=== PATIENT | female | born 1965 | race Caucasian/White ===

== ENCOUNTER 2024-07-29 13:09 | Outpatient (AMB) | payer BC, SELFPAY ==
--- NOTE | 2024-07-29 13:16 | MHC.PC.OV ---
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 She is transferring from [facility]. She reports a significant past medical history of dyslipidemia. CV: Blood pressure today in the office is 132/86. Denies any history of hypertension. She did trial lipitor in the past but she had adverse effects. Cholesterol has been diet controlled. Mammo: follows at [facility], done in 2023 Pap: follows with [facility] [place] 20[facility] Bone density: last menses was at the age of 51 Colonoscopy: never had this Father had TIA and T2DM in his 50s. 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 1. Little interest or pleasure in doing things: not at all 2. Feeling down, depressed, or hopeless: not at all 3. Trouble falling or staying asleep, or sleeping too much: not at all 4. Feeling tired or having little energy: not at all 5. Poor appetite or overeating: not at all 6. Feeling bad about yourself - or that you are a failure or have let yourself or your family down: not at all 7. Trouble concentrating on things, such as reading the newspaper or watching television: not at all 8. Moving or speaking so slowly that other people could have noticed. Or the opposite - being so fidgety or restless that you have been moving around a lot more than usual: not at all 9. Thoughts that you would be better off or of hurting yourself in some way: not at all Total score: 0 Depression Screening Interpretation: Negative Depression Screening Done: Yes 83503 - PHQ-9 Billing: Yes Source: Developed by Drs. Remi Marquez, Lori Borges, Mirza Christy and colleagues, with an educational harsah from [employer]. Thrive Questionnaire Date Thrive assessed: 07/26/24 I am a: Patient What is your living situation today?: I have a steady place to live Within the past 12 months, did the food you bought not last and you didn't have the money to get more?: Never true Within the past 12 months, did you worry whether your food would run out before you got money to buy more?: Never true Do you have trouble paying for medicines?: No Do you have trouble getting transportation to medical appointments?: No Do you have trouble paying your heating and electricity bill?: No Do you have trouble taking care of your child, family member or friend?: No Do you have trouble with day-to-day activities such as bathing, preparing meals, shopping, managing finances, etc.?: No Are you currently unemployed and looking for a job?: No Are you interested in more education?: No Please select the resources that you would like help with: None Currently or been in a relationship where the following occur: No concerns reported THRIVE Score: 0 AUDIT C Alcohol Use Questionnaire (AUDIT-C) 1. How often do you have a drink containing alcohol?: 2-4 times a month 2. How many drinks containing alcohol do you have on a typical day when you are drinking?: 1 or 2 3. How often do you have six or more drinks on one occasion?: Never Total Score: 2 Score Reviewed/Action Taken: Yes RUSTY-7 AMB Questionnaire RUSTY-7 Date RUSTY - 7 assessed: 07/29/24 Feeling nervous, anxious, or on edge: 0 = Not at all Not being able to stop or control worryin = Not at all Worrying too much about different things: 0 = Not at all Trouble relaxin = Not at all Being so restless that it is hard to sit still: 0 = Not at all Becoming easily annoyed or irritable: 0 = Not at all Feeling afraid as if something awful might happen: 0 = Not at all Total RUSTY-7 score (0-4 normal; 5-9 mild; 10-14 moderate; 15-21 severe): 0 Source: Developed by Drs. Remi Marquez, Lori Borges, Mirza Christy and colleagues, with an educational harsha from [employer]. RUSTY-7 Assessment Billing RUSTY-7 Assessment Tool: RUSTY-7 Assessment 00227 Physical exam (Primary Care) Vital Signs: Last Vital Signs Pulse 71 07/29/24 13:25 Resp 12 07/29/24 13:25 BP 132/86 07/29/24 13:25 Pulse Ox 98 07/29/24 13:25 Oxygen Delivery Method Room Air 07/29/24 13:25 BMI result Body Mass Index 29.9 Tobacco/Smoking Status: Tobacco use Status Tobacco use date assessed 07/29/24 07/29/24 13:18 Patient Tobacco Use Status Never used Tobacco 07/29/24 13:30 e-Cigarette/Vaping Use Never Used 07/29/24 13:30 PHQ-9: PHQ-9 Score PHQ-9: Total score 0 07/29/24 13:37 Depression Screening Interpretation: Negative Thrive Assessment: Date of Thrive Assessment Date Thrive assessed 07/26/24 07/29/24 13:18 Currently or been in a relationship where the following occur: No concerns reported Const Orientation/consciousness: patient oriented x3 HENMT Ears: hearing grossly normal bilaterally Neck Thyroid: Thyroid normal Lymphatic: no lymphadenopathy noted Resp Auscultation: clear to auscultation bilaterally Cardio Rate: regular rate Rhythm: regular rhythm Heart sounds: S1 normal heart sound present and S2 normal heart sound present GI Inspection: Yes normal to inspection Palpation (GI): Soft to palpation and Other GI palpation findings present (nontender, no cva tenderness) Auscultation: normoactive bowel sounds Rectal Exam - Female: deferred Skin General skin exam: no rashes or lesions noted Neuro General: patient oriented x3, gait normal and no focal motor deficits Coding Level of Care Code New Pt Level 3 (71237) Complex EM visit Add On G2211 Diagnoses Dyslipidemia E78.5 Vitamin D insufficiency E55.9 Encounter to establish care with new provider Z76.89 Additional Codes RUSTY-7 Assessment Billing - RUSTY-7 Assessment Tool: RUSTY-7 Assessment 08322 ([id number]) PHQ-9 - 40821 - PHQ-9 Billing: Yes ([id number]) Assessment & Plan Assessment & Plan (1) Dyslipidemia: Code(s): E78.5 - Hyperlipidemia, unspecified Category: Medical Plan: Lipids ordered. We will follow up pending test results (2) Vitamin D insufficiency: Code(s): E55.9 - Vitamin D deficiency, unspecified Category: Medical Plan: Vitamin-D ordered. (3) Encounter to establish care with new provider: Code(s): Z76.89 - Persons encountering health services in other specified circumstances Plan: Mammogram ordered. Bone density ordered. Labs ordered today. Referral to Dermatology and GI. She is overdue for colon cancer screening. Advised to follow up in 6 months for a physical exam. She will follow up sooner if needed. I will let her know her test results once available./ Orders: Orders MM screening mammo BI 07/29/24 Z12.31 - Encounter for screening mammogram for malignant neoplasm of breast Vitamin B12 and Folate 07/29/24 E55.9 - Vitamin D deficiency, unspecified, E78.5 - Hyperlipidemia, unspecified Magnesium 07/29/24 E55.9 - Vitamin D deficiency, unspecified, E78.5 - Hyperlipidemia, unspecified Vitamin D 25-OH Total 07/29/24 E55.9 - Vitamin D deficiency, unspecified, E78.5 - Hyperlipidemia, unspecified Microalbumin, Random (w Creat) 07/29/24 E55.9 - Vitamin D deficiency, unspecified, E78.5 - Hyperlipidemia, unspecified XR DEXA axial skeleton 07/29/24 N95.9 - Unspecified menopausal and perimenopausal disorder Complete Blood Count Auto Diff 07/29/24 E55.9 - Vitamin D deficiency, unspecified, E78.5 - Hyperlipidemia, unspecified Comprehensive [place]. Panel Fast 07/29/24 E55.9 - Vitamin D deficiency, unspecified, E78.5 - Hyperlipidemia, unspecified Lipid Panel 07/29/24 E55.9 - Vitamin D deficiency, unspecified, E78.5 - Hyperlipidemia, unspecified TSH reflex Free T4 07/29/24 E55.9 - Vitamin D deficiency, unspecified, E78.5 - Hyperlipidemia, unspecified Referrals Gastroenterology Referral Z12.11 - Encounter for screening for malignant neoplasm of colon Dermatology Referral L98.9 - Disorder of the skin and subcutaneous tissue, unspecified
[2024-07-29 13:25] VITALS: BP 132/86; PULSE 71; RESP 12; O2SAT 98; BMI 29.9
--- OUTSIDE RECORDS SUMMARY | 2024-07-29 15:40 | XMS_ITS | Data Portability ---
Author Organization [facility], [address] Address [address] [place] [id number] Assessment No assessment recorded. Plan of Treatment Reminders Order Date Submit Date Provider Last Modified By Organization Details Last Modified Time Details Appointments None recorded. Lab rapid strep group A, throat 2022 023 [email or web address] [facility], [address] [place] [address], [id number], 14:17:48 streptococ cus group A, culture, throat 2022 023 [email or web address] [facility] ([facility], [address] [place] [address], [place], [address], 12:07:05 Referral None recorded. Procedures None recorded. Surgeries None recorded. Imaging None recorded. Medication Orders amoxicilli n 875 mg tablet 2022 023 ATHENAFAX [id number], [address] [facility], [place], [address], 14:20:44 Patient TargetsNo targets recorded. Patient Instructions Encounter Date Encounter Id Patient Instructions Last Modified By Organization Details Last Modified Time 11/19/2022 [id number] sore throat: car e instructions Not available 11/19/2022 14:17:47 Use over the counter medications for your sore throat. Basic lozenges (cough drops) or lozenges with an anesthetic (numbing agent) can be used as needed for quick results; look for the active ingredient, benzocaine, for numbing lozenges (like Cepacol Extra or Chloraseptic Max). Gargling with warm salt water can also relieve pain. Dissolve 1/4 to 1/2 teaspoon in 8-ounces of warm water; gargle and spit salt solution every hour, as needed. Sore throat pain can also be reduced by taking regular doses of acetaminophen (tylenol) or ibuprofen (Advil); if you are given a prescription of PREDNISONE, you may continue to take acetaminophen, but do not take ibuprofen or naprosyn. While this isn't quick, it can significantly reduce pain within an hour after taking. Please switch toothbrush after being on antibiotic for 24 hrs. You should follow-up with your PCP in days, or at any time if your condition does not improve or worsens. Any acute change should prompt a visit to the nearest Emergency Department. . Not available 11/19/2022 14:17:31 Reason for Referral None Reported. Results Created Date Observation Date Name Description Value Unit Range Abnormal Flag Note LastModifiedBy Organization Detail LastModifiedTime 11/20/1911/21/2022 BETA STREP GP A CULTU RE beta strep gp A culture COMMEN T abnormal Beta- hemol ytic colon ies, not group A Strep tococ cus isola sharad. Refer ence Range : Negat nunu Penic illin and ampic illin are drugs of choic e for treat ment of beta- hemol ytic strep tococ noelle infec tions . Susce ptibi lity testi ng of penic illin s and other beta- lacta m agent s appro antony by the FDA for treat ment of beta- hemol ytic strep tococ noelle infec tions need not be perfo rmed routi keisha becau se nonsu scept ible isola yemi are extre dinorah rare in any beta- hemol ytic strep tococ cus and have not been repor sharad for Strep tococ cus pyoge betzaida (grou p A). (CLSI ) Not Available [facility] ([facility]) [address] [facility], [place], [address], 11/21/2022 12:07:04 11/20/19 23 11/19/2022 rapid strep group A, throa t Unknown Analyte Normal = Negati ve Not Available [address] [place], [phone], 11/19/2022 13:31:48 11/20/1911/19/2022 rapid strep group A, throa t Unknown Analyte negati ve Not Available [address] [place], [address], 11/19/2022 13:31:48 Result Notes None recorded. Problems No Known Problems Medical Equipment None Reported. Allergies No known drug allergies Medications Name Sig Start Date Stop Date Status Note LastModified by Organization Details LastModified Time amoxicillin 875 mg tablet TAKE 1 TABLET BY MOUTH EVERY 12 HOURS FOR 10 DAYS active Not Available Not Available No t Available Vitals Date Recorded Body height Body mass index (BMI) Body weight Pain severity - 0-10 verbal numeric rating [Score] - Reported Respiratory rate Oxygen saturation Oxygen saturation in Arterial blood by Pulse oximetry Heart rate Body temperature Systolic blood pressure Diastolic blood pressure Provider Name and Address Organization Details Last Updated DateTime 165.1 cm 24.5 kg/m2 96849.0 8 g 9 18 /min 98 % 98 % 105 /min 99.9 [degF] 139 mm[Hg] 81 mm[Hg] iNmco FREEMAN - [facility] 13:33:05 Social History Question Answer Notes LastModified by Organizat ion Details LastModified Time Tobacco Smoking Status Never Smoker Nimco schneider [place] - [facility] 11/19/2022 13:31:41 What Is Your Level Of Alcohol Consumption? None Information not available 11/19/2022 Have You Had Direct Contact, Or Contact During Intimacy, With Monkeypox Rash, Scabs, Or Body Fluids From A Person With Monkeypox? No Information not available 11/19/2022 Do You Use Any Illicit Or Recreational Drugs? No Information not available 11/19/2022 Have You Recently Traveled Abroad? No Information not available 11/19/2022 Do You Or Have You Ever Used Any Other Forms Of Tobacco Or Nicotine? No Information not available 11/19/2022 Sex: Unknown Functional Status None recorded. Mental Status None recorded. Family History Relationship Description Onset Age of this Age Resolved Age Notes LastModified by Organization Details LastModified Time Father No current problems or disability Not available 11/19 13:31:35 Mother No current problems or disability Not available 11/19 13:31:35 Medical History No medical history recorded. Gynecological HistoryNo gynecological history recorded. Obstetrics History GPAL:G 0 P 0 0 0 0 Immunizations Vaccine Type Date Status Note Provider Nam e and Address Organization Details Recorded Time COVID-19, mRNA, LNP-S, PF, 30 mcg/0.3 mL dose 08/29/2020 completed Nimco Poynette null, PA - [facility] 11/19/2022 13:30:18 COVID-19, mRNA, LNP-S, PF, 30 mcg/0.3 mL dose 09/19/2020 completed Nimco Candelario null, PA - [facility] 11/19/2022 13:30:18 Past Encounters Encounter ID Performer Location Encounter Start Date Encounter Closed Date Diagnosis/Indication Diagnosis SNOMED-CT Code Diagnosis ICD10 Code Diagnosis Note [id number] [address] [place] [phone] 03/11/2018 13:40:09 03/11/2018 15:36:42 [id number] [address] [place] [phone] 09/08/2020 17:12:14 09/08/2020 18:47:47 [id number] Franck Altamirano NP [address] [address] [place] [address] 11/19/2022 13:14:01 11/19/2022 14:25:18 Acute pharyngitis 082908667 J02.9 Health Concerns Section Related Observation LastModified by Organization Detai ls LastModified Time None Recorded Concern Status LastModified by Organization Details LastModified Time None Recorded Advance Directives Directive None Recorded Payers Encounter Date Sequence Insurance Name Policy Number Policy Finch Covered Member ID Finch Member ID Guarantor Name 03/11/2018 1 [place] [id number] Ken Murillo [id number] Fior Murillo 11/19/2022 1 [place] [facility] [id number] Fior Murillo [id number] Fior Murillo Notes Date Note Type Note Provider Name and Address Organization Details Recorded Time 3 text/html Sore throatReported bypatient.Source of patient informationInformation obtained from patient; Patient arrived at Urgent Care ambulatory; learning styles: auditory Location:throat Severity:mild Quality:sharp; burning Onset/Timin days Associated Symptoms:no sputum production; no shortness of breath; no wheezing; no vomiting; no nausea;sore throat;hoarseness;coughing; sinus pain/ congestion Context:no foreign travel; non-smoker;sick contact Modifying Factors:exposed to Strep non household Franck Altamirano NP [address] [place], [address], [place] - [facility] 11/19/2022 14:18:17 OBGyn Episode No OBEpisode recorded.
== END 2024-07-29 14:13 | disposition home or self-care (01) ==
LOC: HO.HMCFM 13:10
PROVIDERS: PCP Physician Assistant; Visit Provider Physician Assistant
DX: E78.5 Hyperlipidemia, unspecified (principal); E55.9 Vitamin D deficiency, unspecified; Z76.89 Persons encountering health services in other specified circumstances

== ENCOUNTER → 2024-07-29 13:09 | Outpatient (BNVA) | payer BC, SELFPAY | PROVIDERS: PCP Family Medicine; Visit Provider Physician Assistant | DX: Z76.89 Persons encountering health services in other specified circumstances (principal); E78.5 Hyperlipidemia, unspecified; E55.9 Vitamin D deficiency, unspecified | CPT/HCPCS: 96127 ==

== ENCOUNTER 2025-02-02 09:11 | Outpatient (REF) | payer BC, SELFPAY ==
[2025-02-02 11:38] LABS: MANUAL DIFF FLAG NO
[2025-02-02 11:56] LABS: Hematocrit 41.7 % (37.0-47.0); Hemoglobin 14.4 g/dl (12.0-16.0); Imm Gran Abs Auto 0.02 X10*3/uL (0.00-0.03); Imm Gran Pct Auto 0.3 % (0.0-0.4); Lymphocytes Absolute Auto 2.5 X10*3/uL (1.2-4.9); Mean Corpuscular HGB Conc 34.5 g/dl (31.0-35.0); Mean Corpuscular Hemoglobin 30.8 pg (27.0-33.0); Mean Corpuscular Volume 89.3 fL (80.0-98.0); NRBC Abs Auto 0.000 X10*3/uL (0.0-0.012); NRBC Pct Auto 0.0 /100WBC (0.0-0.2); Platelet Count 316 X10*3/uL (160-400); Red Blood Count 4.67 X10*6/uL (4.20-5.50); White Blood Count 6.5 X10*3/uL (4.8-10.8)
[2025-02-02 12:19] LABS: Alanine Aminotransferase 80 U/L (0-31); Albumin Level 4.6 g/dL (3.5-5.0); Alkaline Phosphatase 86 U/L (39-117); Anion Gap 13 (12-20); Aspartate Amino Transferase 46 U/L (5-31); Blood Urea Nitrogen 15 mg/dL (9-16); Calcium 9.6 mg/dL (8.4-10.2); Carbon Dioxide 23 mmol/L (22-29); Chloride 111 mmol/L (96-108); Cholesterol 310 mg/dL (<200); Estimated Glomerular Filt Rate > 60; HDL Cholesterol 60 mg/dL (>40); Magnesium 2.1 mg/dL (1.6-2.6); Potassium 4.1 mmol/L (3.3-5.1); Sodium 143 mmol/L (135-145); Total Protein 7.3 g/dL (6.5-8.0); Triglycerides 177 mg/dL (<150)
[2025-02-02 12:35] LABS: Folate 10.9 ng/mL (> or = 4.0); Vitamin B12 269 pg/mL (200-900)
[2025-02-02 14:59] LABS: Microalbum/Creatinine Ratio Ur 4.7 ug/mg cr (<30)
== END 2025-02-02 09:12 | disposition home or self-care (01) ==
LOC: HO.WFDLDS 09:11
PROVIDERS: Visit Provider Physician Assistant
DX: E78.5 Hyperlipidemia, unspecified (principal); E55.9 Vitamin D deficiency, unspecified
CPT/HCPCS: 36415; 80053; 80061; 82043; 82306; 82570; 82607; 82746; 83735; 84443; 85025

== ENCOUNTER 2025-02-04 15:22 | Outpatient (AMB) | payer BC, SELFPAY ==
--- NOTE | 2025-02-04 15:35 | MHC.PC.OV ---
Vital Signs 02/04/25 15:37 Weight 154 lb 2 oz BP 108/72 Blood Pressure Location Rt brachial Position Sitting Respiration 12 Pulse 72 Pulse Source Pulse Oximeter Pulse Oximetry (%) 98 Oxygen Delivery Method Room Air Intake Visit Reasons: 6 month physical Intake Note: Physical Biological Photographer Required: No Allergies No Known Allergies Allergy (Verified 02/04/25 15:37) Medication List - Last Reconciled 02/04/25 by Andreea Mccollum PA-C cyanocobalamin (vitamin B-12) 1,000 mcg PO DAILY rosuvastatin (Crestor) 5 mg PO DAILY Tobacco use date assessed: 02/04/25 Dental Screening Dental Screen Date: 07/29/24 HPI 6 month physical HPI Details Patient is a 58-year-old female who presents today to for a physical exam. She reports a significant past medical history of dyslipidemia. CV: Blood pressure today in the office is 108/72. Denies any history of hypertension. She did trial lipitor in the past but she had adverse effects. Cholesterol is very elevated today. GI: Recent labs show elevated LFTs. Mammo: follows at [facility], done in 2024 Pap: follows with [facility], UTD 2023 Bone density: UTD at [facility] 2024 Colonoscopy: never had this- was referred in July Father had TIA and T2DM in his 50s. 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 Current occupational exposures/hazards: No Cognitive needs: No Hearing needs: No Vision needs: Yes (glasses) Questionnaire Thrive Questionnaire Date Thrive assessed: 07/26/24 I am a: Patient What is your living situation today?: I have a steady place to live Within the past 12 months, did the food you bought not last and you didn't have the money to get more?: Never true Within the past 12 months, did you worry whether your food would run out before you got money to buy more?: Never true Do you have trouble paying for medicines?: No Do you have trouble getting transportation to medical appointments?: No Do you have trouble paying your heating and electricity bill?: No Do you have trouble taking care of your child, family member or friend?: No Do you have trouble with day-to-day activities such as bathing, preparing meals, shopping, managing finances, etc.?: No Are you currently unemployed and looking for a job?: No Are you interested in more education?: No Please select the resources that you would like help with: None Currently or been in a relationship where the following occur: No concerns reported THRIVE Score: 0 AUDIT C Alcohol Use Questionnaire (AUDIT-C) 1. How often do you have a drink containing alcohol?: Monthly or less 2. How many drinks containing alcohol do you have on a typical day when you are drinking?: 1 or 2 3. How often do you have six or more drinks on one occasion?: Never Total Score: 1 RUSTY-7 AMB Questionnaire RUSTY-7 Date RUSTY - 7 assessed: 07/29/24 Source: Developed by Drs. Remi Marquez, Lori Borges, Mirza Christy and colleagues, with an educational harsha from [employer]. Physical exam (Primary Care) Vital Signs: Last Vital Signs Pulse 72 02/04/25 15:37 Resp 12 02/04/25 15:37 BP 108/72 02/04/25 15:37 Pulse Ox 98 02/04/25 15:37 Oxygen Delivery Method Room Air 02/04/25 15:37 Tobacco/Smoking Status: Tobacco use Status Tobacco use date assessed 02/04/25 02/04/25 15:38 Patient Tobacco Use Status Never used Tobacco 02/04/25 15:37 e-Cigarette/Vaping Use Never Used 02/04/25 15:37 Thrive Assessment: Date of Thrive Assessment Date Thrive assessed 07/26/24 02/04/25 15:37 Currently or been in a relationship where the following occur: No concerns reported Const Orientation/consciousness: patient oriented x3 HENMT Ears: hearing grossly normal bilaterally and TM's normal bilaterally General nose exam: No nasal polyps present Face and sinus: Yes sinuses nontender Mouth: Normal oral and palatal mucosa present Eyes Pupils: Equal, round and reactive pupils present EOM: EOMs intact bilaterally Neck Neck: Yes full ROM and Yes no lymphadenopathy Thyroid: Thyroid normal Chest Chest palpation & inspection: normal inspection of the chest Resp Auscultation: clear to auscultation bilaterally Cardio Rate: regular rate Rhythm: regular rhythm Heart sounds: S1 normal heart sound present and S2 normal heart sound present Peripheral pulses: Peripheral pulses 2+ throughout GI Other: Soft, nontender Auscultation: normal bowel sounds Rectal Exam - Female: deferred General: Yes no CVA tenderness Back/Spine/Pelvis Other: Nontender Back: no CVA tenderness Skin General skin exam: no rashes or lesions noted Neuro General: patient oriented x3, gait normal, CN's II-XI intact bilaterally and deep tendon reflexes 2+ bilaterally Cranial nerves: Yes Equal, round and reactive pupils present Motor exam (neuro): 5/5 motor strength present throughout Sensory Exam: double simultaneous stimulation for sensation normal Coordination: [id number] test normal and Romberg test negative Extrem General: Yes normal to inspection and Yes full ROM Psych Affect: normal affect Attitude: cooperative Thought process: Normal thought process present Thought content: Normal thought content present Insight: Good insight present (Psych) Judgement: Good judgement present (Psych) Results Reviewed Results Reviewed: Laboratory Tests 02/02/25 02/02/25 09:13 09:22 WBC 6.5 RBC 4.67 Hgb 14.4 Hct 41.7 Plt Count 316 Sodium 143 Potassium 4.1 Chloride 111 H Carbon Dioxide 23 Anion Gap 13 BUN 15 Creatinine 0.82 Estimated GFR > 60 Fasting Glucose 94 Calcium 9.6 Magnesium 2.1 Total Bilirubin 0.4 AST 46 H ALT 80 H Alkaline Phosphatase 86 Total Protein 7.3 Albumin 4.6 Triglycerides 177 H Cholesterol 310 H LDL Cholesterol, Calc 215 H HDL Cholesterol 60 Vitamin B12 269 25-OH Vitamin D Total 41.3 TSH 3.19 Urine Creatinine 232.23 Urine Microalbumin 11.0 Microalb/Creat Ratio 4.7 Coding Level of Care Code Est Pt Prev Care 40-64y(50169) Diagnoses Routine general medical examination at a health care facility Z00.00 Dyslipidemia E78.5 Elevated LFTs R79.89 B12 deficiency E53.8 Assessment & Plan Assessment & Plan (1) Routine general medical examination at a health care facility: Code(s): Z00.00 - Encounter for general adult medical examination without abnormal findings Plan: Health maintenance reviewed Labs reviewed and ordered (2) Dyslipidemia: Code(s): E78.5 - Hyperlipidemia, unspecified Category: Medical Plan: We reviewed labs and discussed this at length. We will start Crestor. Discussed risks and benefits and adverse effects. I will plan to recheck lipids in 3-4 months. We will recheck LFTs again at that time (3) Elevated LFTs: Code(s): R79.89 - Other specified abnormal findings of blood chemistry Category: Medical Plan: We will recheck LFTs We will start statin Ultrasound ordered (4) B12 deficiency: Code(s): E53.8 - Deficiency of other specified B group vitamins Category: Medical Plan: b12 low end normal start supplement Orders: Orders Hepatitis B Surface Antigen 02/04/25 E78.5 - Hyperlipidemia, unspecified, R79.89 - Other specified abnormal findings of blood chemistry, R94.5 - Abnormal results of liver function studies US abdomen comp w elastography 02/04/25 E78.5 - Hyperlipidemia, unspecified, R79.89 - Other specified abnormal findings of blood chemistry, R94.5 - Abnormal results of liver function studies Liver Panel 02/04/25 E78.5 - Hyperlipidemia, unspecified, R79.89 - Other specified abnormal findings of blood chemistry, R94.5 - Abnormal results of liver function studies Hepatitis C Antibody 02/04/25 E78.5 - Hyperlipidemia, unspecified, R79.89 - Other specified abnormal findings of blood chemistry, R94.5 - Abnormal results of liver function studies Medications: New rosuvastatin (Crestor) 5 mg PO DAILY 90 tabs 0RF cyanocobalamin (vitamin B-12) 1,000 mcg PO DAILY 90 caps 0RF
[2025-02-04 15:37] VITALS: BP 108/72; PULSE 72; RESP 12; O2SAT 98
== END 2025-02-04 16:07 | disposition home or self-care (01) ==
LOC: HO.HMCFM 15:23
PROVIDERS: PCP Physician Assistant; Visit Provider Physician Assistant
DX: Z00.00 Encounter for general adult medical examination without abnormal findings (principal); E78.5 Hyperlipidemia, unspecified; R79.89 Other specified abnormal findings of blood chemistry; E53.8 Deficiency of other specified B group vitamins